=== PATIENT | female | born 1960 | race Caucasian/White ===

== ENCOUNTER 2025-07-23 13:05 | Outpatient (REF) | payer OTHER, SELFPAY ==
--- NOTE | ~2025-07-23 | XR_ITS ---
EXAMINATION: XR LUMBOSACRAL SPINE WITH OBLIQUES CLINICAL INFORMATION: LOW BACK PAIN COMPARISON: None available. TECHNIQUE: AP oblique and lateral views. FINDINGS: Multilevel endplate sclerosis, subchondral cyst formation, endplate irregularity, decreased intervertebral disc height and vacuum phenomenon at L1 to, L2-3 and L4-5 levels. Levoconvex rotoscoliosis apex at L3-4. Facet joint hypertrophy at L4-5 and L5-S1. Grade 1 retrolisthesis at L3-4 and L5-S1. No acute cortical disruption. No lytic or blastic lesions. Vascular calcifications, aorta and likely iliac arteries. Multiple round calcifications in the left hemiabdomen, the largest measures 2.5 cm. XR/XR lumbar spine 4V min IMPRESSION: Multilevel thoracolumbar spondylosis resulting in a levoconvex scoliosis and grade 1 retrolisthesis L3-4 and L5-S1. Questionable nephrolithiasis, left kidney and or calcifications in the spleen and or pancreas. Electronically signed by: El Ocasio MD 07/23/2025 01:48 PM EDT
--- OUTSIDE RECORDS SUMMARY | 2025-07-23 15:28 | XMS_ITS | Clinical Summary ---
Author Organization [facility] [address] [facility] l[address] Address [address] [place] [address] Phone Care Team Providers Care Human Services Worker Name Role Phone Obinna Beltrán MD Primary Care Provider [phone] Allergies Active Allergy Reactions Criticality Noted Date Comments Cat Dander Medium 09/19/2018 Cats Other 09/19/2018 Seasonal Allergies Medications acyclovir (ZOVIRAX) 5 % cream Apply cream Q3h x 7 days. 3 Active albuterol HFA (PROAIR HFA ; PROVENTIL HFA ; VENTOLIN HFA) 90 mcg/actuation inhaler Inhale 2 Puffs into the lungs every 4 hours as needed for Cough, Wheezing or Shortness of Breath. 2 Active lidocaine (LIDODERM) 5 % patch Place 1 Patch onto the skin every 12 hours. Apply for no more than 12 hours in any 24 hour period. 1 Active traZODone (DESYREL) 50 mg tablet Take 1 tablet (50 mg total) by mouth at bedtime as needed for sleep. 180 tablet 1 5 Active FLUoxetine (PROzac) 40 mg capsuleIndicatio ns:Anxiety disorder, unspecified Take 2 capsules (80 mg total) by mouth 1 (one) time each day. 180 capsule 5 Active omeprazole (PriLOSEC) [address] capsuleIndelainaticisco ns:Gastritis, unspecified, with bleeding TAKE 1 CAPSULE BY MOUTH EVERY DAY 90 capsule 5 Active propranoloL (INDERAL) 20 mg tablet TAKE 1 TABLET BY MOUTH 3 TIMES DAILY NEEDED (ANXIETY ATTACKS). 270 tablet 5 Active Additional Information Patient not taking.Reported on 06/19/2025 busPIRone (BUSPAR) 15 mg tablet Take 1 tablet (15 mg total) by mouth 2 (two) times a day. 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 She has severe constant neck pain 6-9.5/10, does not feel she could tolerate physical therapy. She has had lumbar spine cortisone injections x5 that did not help, she does not wish to pursue injections in her neck. She tried oral prednisone 4 months ago, it did not improve her symptoms. I will review her cervical spine MRI with Dr. Gandhi, see if she recommends surgical intervention. I reviewed patient's cervical spine MRI films with Dr. Gandhi, patient has multilevel degenerative changes, Dr. Gandhi does not feel offering fusion C4-5, C5-6, C6-7 will ultimately help her neck pain, she has degenerative changes at C3-4 as well that in time would progressively get worse status post cervical fusion at these levels (adjacent segment degeneration). She did not see cord compression at any level. Patient is not describing arm symptoms like radiculopathy, weakness, numbness tingling or any gait/balance issues. Dr. Gandhi does feel patient should try physical therapy, I called the patient but there was no answer and left a voice message, will call patient again at a later date. Mild intermittent asthma without complication Anxiety 03/31/2020 Panic attacks 03/31/2020 Chronic low back pain 07/08/2019 Insomnia 07/08/2019 Lumbar spinal stenosis 07/08/2019 Depression 09/18/2017 Headache, occipital 09/18/2017 Encounters Date Type Department Care Team Description 06/19/2025 3:20 PM EDT Office Visit Gastroenterology - [place] [address] [facility] [address] [place] [address] Perez Ridley MD MALT lymphoma (Primary Dx) from Last 3 Months Immunizations Name Administration Dates Next Due Influenza Quadravalent, MDCK , 0.5ml, preservative free (Flucelvax) 6mo and older 10/10/2019 Influenza Quadravalent, MDCK , 0.5ml, with preservative (Flucelvax) 6mo and older 08/09/2017 Surgical History Surgery Date Site/Laterality Comments TUBAL LIGATION 1991 PROCEDURE: HISTORICAL TUBAL LIGATION BREAST SURGERY 2002 PROCEDURE: NM BREAST AUGMENTATION WITH IMPLANT TONSILLECTOMY 1967 PROCEDURE: HISTORICAL TONSILLECTOMY OTHER SURGICAL HISTORY PROCEDURE: OUTSIDE ENDOSCOPY TONSILLECTOMY PROCEDURE:TONSILLECTOMY BLADDER SUSPENSION PROCEDURE:BLADDER SUSPENSION BREAST SURGERY PROCEDURE:TRANSUMBILICAL AUGMENTATION MAMMAPLASTY Medical History Medical History Date Comments Chronic low back pain withou t sciatica 2012 DX:Chronic low back pain wit hout sciatica Outbursts of anger DX:Outbursts of anger Stress DX:Stress Headache, occipital 09/18/2017 DX:Headache, occipital Depression 09/18/2017 DX:Depression Mild intermittent asthma, uncomplicated DX:Mild intermittent asthma, uncomplicated MALT (mucosa associated lymp hoid tissue) DX:MALT (mucosa associated l ymphoid tissue) Epigastric pain DX:Epigastric pa in Esophageal reflux DX:Esophageal reflux History of hematemesis DX:Histor y of hematemesis MALT (mucosa associated lymp hoid tissue) DX:MALT (mucosa associated l ymphoid tissue) Gastric tumor DX:Gastric tumor Family History Medical History Relation Name Comments COPD Brother 1 peptic ulcers Other: Heart disease Brother 2 Other: borderline diabetes Daughter Cancer Father THROAT Other: unknown Father not close to biological father Lung cancer Grandparent Cancer Maternal Grandmother LUNG Coronary artery disease Mother CABG x3 age 60, bronchitis Heart attack Paternal Grandfather No Known Problems Sister No Known Problems Son Relation Name Status Comments Brother 1 Alive Brother 2 Alive Daughter Alive Father Grandparent Maternal Grandmother Mother Paternal Grandfather Sister Alive Son Alive Social History Tobacco Use Types Packs/Day Years Used Date Smoking Tobacco: Former Cigarettes Q uit: 08/09/2008 Smokeless Tobacco: Never Alcohol Use Standard Drinks/Week Comments Yes 20 (1 standard drink = 0.6 oz pu re alcohol) Comments Unknown Sex and Gender Information Value Date Recorded Sex Assigned at Not on file Legal Sex Female 12:12 AM EST Gender Identity Not on file Sexual Orientation Not on file Obstetrics History Last Filed Vital Signs Vital Sign Reading Time Taken Comments Blood Pressure 136/76 06/19/2025 3:31 PM EDT Pulse 78 06/19/2025 3:31 PM EDT Temperature - - Respiratory Rate - - Oxygen Saturation - - Inhaled Oxygen Concentration - - Weight 58.1 kg (128 lb) 06/19/2025 3:31 PM EDT Height 154.9 cm (5' 1 ) 06/19/2025 3:31 PM EDT Body Mass Index 24.19 06/19/2025 3:31 PM EDT Plan of Treatment Upcoming Encounters Date Type Department Care Team (Late st Contact Info) Description 09/24/2025 12:30 PM EST Appointment [facility] [address] [place] [address] Perez Ridley MD [address] [place] [phone] Health Maintenance Due Date Last Done Comments Breast Cancer Screening 1962 COVID-19 Vaccine (#1) 1967 DTaP,Tdap,and Td Vaccines (1 - Tdap) 1981 Pneumococcal Vaccine: 50+ Years (1 of 2 - PCV) 1981 Zoster Vaccines (1 of 2) 1981 Cervical Cancer Screening: P ap Smear 1983 RSV Immunization Adult Patients (1 - Risk 60-74 years 1-dose series) 2022 Colorectal Cancer Screening: Stool Based Tests (FOBT/FIT) 10/23/2022 HIV Screening 10/23/2022 Medicare Annual Wellness Visit 10/23/2022 Social Influencers of Health Screening 10/23/2022 Depression Screening 11/20/2024 08/31/2024 Influenza Vaccine (#1) 2025 9, 08/09/2017 Cholesterol Screening (Lipid Panel) 02/14/2029 02/15/2024 Hepatitis C Screening Completed 09/29/2022 HIB Vaccines Aged Out No longer eligi ble based on patient's age to complete this topic HPV Vaccines Aged Out No longer eligi ble based on patient's age to complete this topic Hepatitis A Vaccines Aged Out No long er eligible based on patient's age to complete this topic Hepatitis B Vaccines Aged Out No long er eligible based on patient's age to complete this topic IPV Vaccines Aged Out No longer eligi ble based on patient's age to complete this topic MMR Vaccines Aged Out No longer eligi ble based on patient's age to complete this topic Meningococcal ACWY Vaccine Aged Out N o longer eligible based on patient's age to complete this topic Meningococcal B Vaccine Aged Out No l onger eligible based on patient's age to complete this topic RSV Immunization Patients Under 20 months Aged Out No longer eligible b ased on patient's age to complete this topic Varicella Vaccines Aged Out No longer eligible based on patient's age to complete this topic Procedures Procedure Name Priority Date/Time Associated Diagnosis Comments DEPRESSION SCREENING Routine 08/31/2024 LIPID PANEL Routine 02/15/2024 HEPATITIS C SCREENING Routine 09/29/2022 from Last 3 Months or Most Recently Relevant to Health Maintenance Results * Depression Screening (08/31/2024) Depression Screening Abstracted [facility] Provider HEALTH MAINTENANCE Final Result * (ABNORMAL) Lipid panel (02/15/2024) Pathologist [facility] LDL/HDL Ratio 3 0 - 4 Triglycerides 84 0 - 150 mg/dL Cholesterol 183 0 - 200 mg/dL HDL 55 >=40 mg/dL LDL Cholesterol 112(A) 0 - 100 mg/dL Blood Venous blood specimen / Unknown [facility] Provider LAB BLOOD ORDERABLES Christianne l Result * Hepatitis C Screening (09/29/2022) Pathologist [facility] Hepatitis C Screening Abstracted Historical Provider HEALTH MAINTENANCE Final Result from Last 3 Months or Most Recently Relevant to Health Maintenance Insurance MEDICAID - [place] [employer] MEDICARE Care Teams Human Services Worker Relationship Specialty Start Date End Date Obinna Beltrán MD [address] [place] [address] [address] [place], [place] PCP - General Internal Medicine 06/17/25
--- OUTSIDE RECORDS SUMMARY | 2025-07-23 15:28 | XMS_ITS ---
Author Name [facility] Organization Unknown Care Team Organization Name Specialty Phone Email Start Date End Da te [facility] Debbie Dueñas Primary Care 09/27/2022 07/08/2024
--- OUTSIDE RECORDS SUMMARY | 2025-07-23 15:28 | XMS_ITS | Clinical Summary ---
Author Organization [facility] Address [address] [facility] [address] [place], [place] [id number] Phone Care Team Providers Care Bottling Equipment Sales Representative Name Role Phone Patricia Kong MD Primary Care Provider Allergies No known active allergies Social History Tobacco Use Types Packs/Day Years Used Date Smoking Tobacco: Never Assessed Education Answer Date Recorded Are you interested in more education? Not on carlotta e 04/17/2024 Are you concerned about learning? Not on file 04/17/2024 No 04/17/2024 No 04/17/2024 Digital Access Answer Date Recorded No 04/17/2024 No 04/17/2024 Reliable internet access at home? Not on file 04/17/2024 Device with a working camera? Not on file Comments Unknown Sex and Gender Information Value Date Recorded Sex Assigned at Not on file Legal Sex Female 11:14 AM EDT Gender Identity Not on file Sexual Orientation Not on file Last Filed Vital Signs Vital Sign Reading Time Taken Comments Blood Pressure - - Pulse - - Temperature - - Respiratory Rate - - Oxygen Saturation - - Inhaled Oxygen Concentration - - Weight 55.8 kg (123 lb) 04/17/2024 1:00 PM EDT Height - - Body Mass Index - - Plan of Treatment Not on file Medical Devices Not on file Insurance MEDICARE [place]PLAC[place] [id number] [place] [phone] MEDICARE REPLACEMENT MEDICARE REPLACEMENT MEDICARE REPLACEMENT MEDICARE REPLACEMENT Care Teams Bottling Equipment Sales Representative Relationship Specialty Start Date End Date Patricia Kong MD [address] [place] [phone] [email or web address] PCP - General 04/01/24 Additional Source Comments The information contained in this document represents components of the legal health record. It is not the complete legal health record.[facility]
--- OUTSIDE RECORDS SUMMARY | 2025-07-23 15:28 | XMS_ITS | Encounter Summary ---
Author Organization [facility] Address [address] [facility] [address] [place] [phone] Phone Care Team Providers Care Spinning Machine Operator Name Role Phone Patricia Kong MD Primary Care Provider Reason for Referral * Outpatient Procedure - Closed Specialty Diagnoses / Procedures Referred By Nikki guillermo Referred To Contact Radiology Diagnoses Congenital occlusion of ureteropelvic junction Hydronephrosis, unspecified hydronephrosis type Procedures NM Renal Study with Lucinda Rodriguez PA-C [address] [place] [address], [address] [place] [phone] Phone: tel: fax: [email or web address] Referral ID Status Reason Start Date Expiration Date Visits Re quested Visits Authorized [id number] Closed 04/01/2024 04/01/2025 1 1 Encounter Details Date Type Department Care Team (Latest Contact Info) Description 04/01/2024 Transcribe Orders Virtual Department [address] [place] [phone] Lucinda Reagan PA-C [address] [place] [address], [address] [place] [phone] [email or web address] Congenital occlusion of ureteropelvic junction (Primary Dx); Hydronephrosis, unspecified hydronephrosis type Social History Tobacco Use Types Packs/Day Years Used Date Smoking Tobacco: Never Assessed Education Answer Date Recorded Are you interested in more education? Not on carlotta e 04/01/2024 Are you concerned about learning? Not on file 04/01/2024 No 04/01/2024 No 04/01/2024 Digital Access Answer Date Recorded No 04/01/2024 No 04/01/2024 Reliable internet access at home? Not on file 04/01/2024 Device with a working camera? Not on file Comments Unknown Sex and Gender Information Value Date Recorded Sex Assigned at Not on file Legal Sex Female 11:14 AM EDT Gender Identity Not on file Sexual Orientation Not on file documented as of this encounter Plan of Treatment Not on file documented as of this encounter Results * NM Renal Study with Lasix (04/17/2024 3:34 PM EDT) Anatomical Region Laterality Modality Abdomen, Kidney Nuclear Medicine 04/17/2024 10:5 6 PM EDT Impressions 04/17/2024 11:15 PM EDT Split function: 12% on the left and 80% on the right. Delayed uptake and excretion on the left with very slow drainage after Lasix. This is consistent with chronic moderate to high-grade obstruction. Right kidney within normal limits. Narrative 04/17/2024 11:15 PM EDT NM RENAL STUDY WITH LASIX Lasix renal scan: COMPARISON: None TECHNIQUE: 10.9 mCi technetium 99m MAG3 was injected. Imaging of the kidneys was performed for 20 minutes. The patient then received 28 mg Lasix intravenously, and imaging was continued for a total of 60 minutes. FINDINGS: Angiographic phase images demonstrates substantially asymmetrically decreased perfusion to the left kidney. On the right, renal uptake and excretion is prompt with spontaneous drainage prior to the administration of diuretic. After Lasix, the kidney drains further to a low residual. On the left, renal uptake and excretion is prolonged with slow continued accumulation of radiotracer within the renal collecting system and no significant drainage prior to administration of Lasix. After diuretic, the left kidney drains approximately 30% with persistent retention of radiotracer at the completion of the exam. The split function is 12% on the left and 88% on the right. Procedure Note Lianne García MD - 04/17/2024 NM RENAL STUDY WITH LASIX Lasix renal scan: COMPARISON: None TECHNIQUE: 10.9 mCi technetium 99m MAG3 was injected. Imaging of the kidneys wasperformed for 20 minutes. The patient then received 28 mg Lasixintravenously, and imaging was continued for a total of 60 minutes. FINDINGS: Angiographic phase images demonstrates substantially asymmetricallydecreased perfusion to the left kidney. On the right, renal uptake and excretion is prompt with spontaneousdrainage prior to the administration of diuretic. After Lasix, the kidneydrains further to a low residual. On the left, renal uptake and excretion is prolonged with slow continuedaccumulation of radiotracer within the renal collecting system and nosignificant drainage prior to administration of Lasix. After diuretic, theleft kidney drains approximately 30% with persistent retention ofradiotracer at the completion of the exam. The split function is 12% on the left and 88% on the right. IMPRESSION: Split function: 12% on the left and 80% on the right. Delayed uptake and excretion on the left with very slow drainage afterLasix. This is consistent with chronic moderate to high-gradeobstruction. Right kidney within normal limits. Lucinda Reagan PA-C IMG NM ABDOMEN Final Result documented in this encounter Visit Diagnoses Diagnosis Congenital occlusion of ureteropelvic junction- Primary Hydronephrosis, unspecified hydronephrosis type Congenital occlusion of ureteropelvic junction Hydronephrosis, unspecified hydronephrosis type documented in this encounter Care Teams Spinning Machine Operator Relationship Specialty Start Date End Date Patricia Kong MD [address] [place] [phone] [email or web address] PCP - General 04/01/24 documented as of this encounter Additional Source Comments The information contained in this document represents components of the legal health record. It is not the complete legal health record.[facility]
--- OUTSIDE RECORDS SUMMARY | 2025-07-23 15:28 | XMS_ITS | Clinical Summary ---
Author Organization [facility] Address [address] [place] [address] Care Team Providers Care Summer Law Associate Name Role Phone Patricia Kong MD Primary Care Provider Allergies No known active allergies Medications Medication Sig Dispensed Refills Start Date End Date Status albuterol 108 (90 Base) MCG/ACT inhaler Inhale 2 puffs into the lungs. 0 08/12/2022 Active ferrous sulfate 325 (65 FE) MG tablet Take 1 tablet (325 mg total) by mouth 2 (two) times a day. 0 02/21/2023 Active FLUoxetine (PROzac) 20 MG capsule TAKE 1 CAPSULE BY MOUTH DAILY ALONG WITH 40 MG CAP FOR TOTAL OF 60 MG DAILY 0 05/09/2023 Active LORazepam (ATIVAN) 0.5 MG tablet Take 1 tablet (0.5 mg total) by mouth every 12 (twelve) hours as needed. 0 12/27/2022 Active omeprazole (PriLOSEC) 40 MG capsule Take 1 capsule (40 mg total) by mouth daily. 0 08/28/2023 Active traZODone (DESYREL) 50 MG tablet Take 1 tablet (50 mg total) by mouth every night at bedtime as needed. 0 08/17/2023 Active senna (SENOKOT) 8.6 MG tablet Take 1 tablet (8.6 mg total) by mouth. 0 02/21/2023 Active Active Problems Problem Noted Date Diagnosed Date MALT lymphoma 09/04/2023 Overview: Gastric MALT lymphoma Calculus of kidney with calculus of ureter 09/04 Hydronephrosis of left kidney 09/04/2023 Anxiety 09/04/2023 Family History Medical History Relation Name Comments Cancer Father THROAT Cancer Maternal Grandmother LUNG Relation Name Status Comments Father Maternal Grandmother Social History Tobacco Use Types Packs/Day Years Used Date Smoking Tobacco: Former Cigarettes Q uit: 2008 Smokeless Tobacco: Never Tobacco Cessation:Counseling Given: Not Answered Alcohol Use Standard Drinks/Week Comments Yes 20 (1 standard drink = 0.6 oz pu re alcohol) Sex and Gender Information Value Date Recorded Sex Assigned at Not on file Gender Identity Not on file Sexual Orientation Not on file Job Start Date Occupation Industry Not on file Not on file Not on file Last Filed Vital Signs Vital Sign Reading Time Taken Comments Blood Pressure 152/86 03/13/2024 11:12 AM EDT Pulse 78 03/13/2024 11:12 AM EDT Temperature 36.7 C (98.1 F) 03/13/2024 11:12 AM EDT Respiratory Rate - - Oxygen Saturation 97% 03/13/2024 11:12 AM EDT Inhaled Oxygen Concentration - - Weight 55 kg (121 lb 3.2 oz) 03/13/2024 11:12 AM EDT Height 153.7 cm (5' 0.5 ) 09/04/2023 1:22 PM EDT Body Mass Index 23.28 09/04/2023 1:22 PM EDT Plan of Treatment Health Maintenance Due Date Last Done Comments Hepatitis C Screening 1962 COVID-19 Vaccine (#1) 1967 Pneumococcal Vaccine (1 of 2 - PCV) 1968 Depression Screening 1974 Preventative Health Evaluation 1980 DTap / Tdap / Td (1 - Tdap) 1981 Shingrix-Zoster Vaccine (1 o f 2) 1981 Cervical Cancer Screening (Pap Smear) 1983 Colon Cancer Screening (Colonoscopy) 2007 Breast Cancer Screening (Mammogram) 2012 Influenza Vaccine (#1) 2025 9, 08/09/2017 RSV Adult > 60+ Yrs or (1 - 1-dose 75+ series) 2037 Hepatitis B Vaccines Aged Out No long er eligible based on patient's age to complete this topic RSV Ped < 20 months Aged Out No longe r eligible based on patient's age to complete this topic Care Teams Summer Law Associate Relationship Specialty Start Date End Date Patricia Kong MD [address] [place] [address] PCP - General Family Medicine 08/25/23
== END 2025-07-23 13:06 | disposition home or self-care (01) ==
LOC: HO.XRAY 13:05
PROVIDERS: PCP Internal Medicine; Visit Provider Student in an Organized Health Care Education/Training Program
DX: M47.816 Spondylosis without myelopathy or radiculopathy, lumbar region (principal)
CPT/HCPCS: 72110

== ENCOUNTER → 2025-07-23 13:20 | Outpatient (BNV) | payer OTHER, SELFPAY | PROVIDERS: PCP Internal Medicine; Visit Provider Radiology Diagnostic Radiology | DX: M43.17 Spondylolisthesis, lumbosacral region (principal) | CPT/HCPCS: 72110 ==